=== PATIENT | female | born 1995 | race Caucasian/White ===

== ENCOUNTER 2017-11-28 10:41 | Emergency (ER) | END 2017-11-28 11:48 | disposition home or self-care (01) ==

== ENCOUNTER 2018-10-11 08:47 | Emergency (ER) | payer BC ==
[~2018-10-11] VITALS: Ht 165.1 cm; Wt 99.1 kg
[~2018-10-11 08:47] MED LIST: BUTA1CAP39 PO; IBUP-1561 PO; NEO/5DRO22 OP
[2018-10-11 08:55] VITALS: Ht 165.1 cm; Wt 99.1 kg
[2018-10-11] MEDS ORDERED: ACETAMINOPHEN 325 MG TAB PO ONE (10:00)
[2018-10-11] MEDS ORDERED: IBUP-1542 PO (11:00)
--- NOTE | 2018-10-11 11:03 | ERD ---
ER Documentation Chief Complaint Chief Complaint Complains of a cough with fever x 3 days HPI 23-year-old female presents with cough and body aches for the last 3-5 days. She has a right temporal headache as well. She has visual changes, vomiting, deficits. She had some fevers initially but those fevers resolved. She is prescribed Zithromax by primary care doctor. ROS All systems reviewed and are negative except as per history of present illness. Medications Home Meds Active Scripts Ibuprofen* (Motrin*) 600 Mg Tab, 600 MG PO Q6H PRN for PAIN, #15 TAB Prov:ISIDRO RAMIREZ MD 10/11/18 Tyrell/Polymyx B Sulf/Dexameth (Iew-Oizq-Tltkwdk Eye Drop) 5 Ml Drops.susp, 5 ML OP TID for 7 Days 2 drops 3 times daily Prov:ISIDRO RAMIREZ MD 11/28/17 Nyqwwuckodjtz-Adukejciko-Gmajvsyb-Codeine* (Fioricet w/ Codeine*) [id number]-[id number] Capsule, 1 CAP PO Q6H PRN for PAIN LEVEL 1-5, #20 CAP Prov:SHANNEN ÁLVAREZ NP 12/13/15 Reported Medications Ibuprofen* (Motrin*) Unknown Strength Tab, PO Q6H PRN for PAIN AND OR ELEVATED TEMP, #30 TAB 12/12/15 Allergies Allergies: Coded Allergies: vancomycin (Verified Allergy, Unknown, 12/12/15) PMhx/Soc History of Surgery: No Anesthesia Reaction: No Hx Neurological Disorder: No Hx Respiratory Disorders: No Hx Cardiac Disorders: No Hx Psychiatric Problems: No Hx Miscellaneous Medical Probl: Yes (CHILDHOOD LEUKEMIA) Hx Alcohol Use: No Hx Substance Use: No Hx Tobacco Use: No Smoking Status: Never smoker FmHx Family History: No diabetes, No coronary disease, No other Physical Exam Vitals Vital Signs Date Temp Pulse Resp B/P (MAP) Pulse Ox O2 O2 Flow FiO2 Time Delivery Rate 10/11/18 98.7 113 20 131/80 96 08:55 (97) Physical Exam Const: No acute distress Head: Atraumatic Eyes: Normal Conjunctiva. Extraocular movement intact and eyes Yamila. ENT: Normal External Ears, Nose and Mouth. TMs and oropharynx normal. Neck: Full range of motion. No meningismus. Resp: Clear to auscultation bilaterally Cardio: Regular rate and rhythm, no murmurs Abd: Soft, non tender, non distended. Normal bowel sounds Skin: No petechiae or rashes Back: No midline or flank tenderness Ext: No cyanosis, or edema Neur: Awake and alert. Cranial nerves II through XII grossly intact. No ce rebellar signs. Normal gait. No appreciable focal neurologic deficits. Psych: Normal Mood and Affect Results 24 hrs Current Medications Medications Dose Sig/Lina Start Time Status Last (Trade) Ordered Route PRN Stop Time Admin Dose Reason Admin 650 mg ONCE ONCE 10/11/18 DC 10/11/18 Acetaminophen PO 10:00 10:05 (Tylenol 10/11/18 10:01 Tab) Procedures/MDM Influenza swab negative. Patient presents URI symptoms, body ache, temporal headache consistent with a tension headache. CT scan was discussed with patient given her concern for headache, but the patient has had a recent CT scan which is normal in decline. Patient likely has resolving viral illness possibly flu and despite negative test. She will discharged home with further observation, rest, fluids, permission to continue antibiotics despite likely viral illness. She has no evidence of hypoxemia, respiratory stress, additional concerning symptoms. The patient was stable with no new complaints during the ER course. Clinically, there is no current evidence to suggest meningitis, sepsis, acute abdomen, pneumonia, stroke, acute coronary syndrome, pulmonary embolism, aortic dissection or any other emergent condition appearing to require further evaluation or hospitalization. Patient counseled regarding my diagnostic impression and care plan. Prior to discharge all questions answered. Pt agrees with treatment plan and understands strict return precautions. Pt is instructed to follow up with primary care provider within 24-48 hours. Precautionary instructions provided including instructions to return to the ER if not improving or for any worsening or changing symptoms or concerns. Departure Diagnosis: Primary Impression: Upper respiratory infection URI type: unspecified URI Qualified Codes: J06.9 - Acute upper respiratory infection, unspecified Condition: Stable Patient Instructions: Uri, Viral, No Abx (Adult) Referrals: NO PRIMARY,CARE PHYSICIAN (PCP) Additional Instructions: Suspect lingering viral illness which should continue to improve. Continue current medications. Drink plenty fluids and rest. Recheck for new or worsening symptoms with primary care doctor ISIDRO RAMIREZ MD Oct 11, 2018 11:03
[2018-10-11 11:17] VITALS: BP 128/80; PULSE 77; RESP 18
== END 2018-10-11 11:17 | disposition home or self-care (01) ==
LOC: FTE 08:47
DX: J06.9 Acute upper respiratory infection, unspecified (principal)
CPT/HCPCS: 87400; 99283; Z7610